=== PATIENT | male | born 1935 | race Two or more races ===

== ENCOUNTER 2023-03-16 10:01 | Outpatient (REF) | payer OTHER, SELFPAY ==
--- NOTE | ~2023-03-16 | US_ITS ---
EXAMINATION: Noninvasive assessment of the bilateral lower extremities with ARTERIAL DUPLEX and ANKLE BRACHIAL INDICES (ABIs). CLINICAL INFORMATION: Peripheral vascular disease, history of prior bilateral superficial femoral artery stents TECHNIQUE: Duplex Doppler techniques with waveform analysis and measurement of velocities in the bilateral common femoral, profunda femoris, superficial femoral, popliteal and tibial arteries were performed. Additionally, ankle pulse volume recordings, ankle pressure measurements and ankle brachial indices were obtained of the lower extremity arterial system bilaterally. The study was performed only at rest. COMPARISON: 02/18/2022 FINDINGS: DIRECT DUPLEX DOPPLER FINDINGS: RIGHT LEG: Common femoral artery: 120 cm/s, phasicity: Biphasic Profunda femoris artery: 104 cm/s, phasicity: Biphasic Superficial femoral artery (proximal): 77.0 cm/s, phasicity: Biphasic Superficial femoral artery (mid-distal): Stent is present. Patent color flow Doppler throughout the stent. Proximal segment:105 cm/s, phasicity: Biphasic Mid segment: 121 cm/s, phasicity: Biphasic Distal segment: 118 cm/s, phasicity: Biphasic Popliteal artery: 64.5 cm/s, phasicity: Biphasic Posterior tibial artery: 67.2 cm/s, phasicity: Biphasic Peroneal artery: 74.2 cm/s, phasicity: Biphasic LEFT LEG: Common femoral artery: 41.4 cm/s, phasicity: Biphasic Profunda femoris artery: 98.2 cm/s, phasicity: Biphasic Superficial femoral artery (proximal): 61.6 cm/s, phasicity: Biphasic Superficial femoral artery (mid): Stent is present. Patent color flow Doppler throughout the stent. Proximal segment:85.1 cm/s, phasicity: Biphasic Mid segment: 91.6 cm/s, phasicity: Biphasic Distal segment: 74.2 cm/s, phasicity: Monophasic Distal margin of the stent: 333 cm/s, phasicity: Monophasic Superficial femoral artery (distal): 100 cm/s, phasicity: Monophasic Popliteal artery: 39.9 cm/s, phasicity: Biphasic Posterior tibial artery: 20.3 cm/s, phasicity: Monophasic Peroneal artery: 55.0 cm/s, phasicity: Monophasic ANKLE-BRACHIAL INDEX: Right: 0.88? Left: 0.64 ANKLE PRESSURES: Right: PT 130, DP 109 Left: PT?94, DP?92 ANKLE PVR WAVEFORMS: Right: Abnormal Left: Abnormal US/US arterial duplex LE BI IMPRESSION: Right leg: Mildly dampened ankle-brachial index. Stent in the mid to distal superficial femoral artery is widely patent Left leg: Moderately dampened ankle-brachial index. A stent in the mid to superficial femoral artery is patent with elevated velocity at the distal margin of the stent consistent with severe stenosis. This is new compared to the prior exam KARINE Reference: - >1.4 = calcified vessels - 0.9 - 1.4 = normal - no significant arterial disease - 0.7 - 0.89 = mild peripheral arterial disease - 0.51 - 0.69 = moderate peripheral arterial disease - ? 0.50 = severe peripheral arterial disease - < .30 = critical arterial disease
== END 2023-03-16 10:02 | disposition home or self-care (01) ==
LOC: HO.US 10:01
PROVIDERS: PCP Internal Medicine; Visit Provider Surgery Vascular Surgery
DX: I70.213 Atherosclerosis of native arteries of extremities with intermittent claudication, bilateral legs (principal)
CPT/HCPCS: 93923; 93925

== ENCOUNTER → 2023-04-15 08:50 | Outpatient (REF) | payer OTHER, SELFPAY | LOC: HO.CARD 08:50 | PROVIDERS: PCP Internal Medicine; Visit Provider Internal Medicine Cardiovascular Disease | DX: Z95.2 Presence of prosthetic heart valve (principal) | CPT/HCPCS: 93306 ==

== ENCOUNTER 2023-05-03 12:55 | Outpatient (AMB) | payer OTHER, SELFPAY ==
--- NOTE | 2023-05-03 13:18 | A.OFFVIS_ITS ---
Intake Vital Signs 05/03/23 13:19 Height 5 ft 2 in Weight 145 lb 8.081 oz BMI 26.6 BP 130/70 Blood Pressure Location Lt brachial Position Sitting Pulse 65 Intake Visit Reasons: 6 mth f/up Intake Note: 6 month f/u Awning Hanger Required: No Accompanied by: Son Allergies diphenhydramine [From BENADRYL] Allergy (Severe, Verified 05/03/23 13:26) ANGIOEDEMA lisinopril [LISINOPRIL] Allergy (Severe, Verified 05/03/23 13:26) ANGIOEDEMA, facial swelling losartan [LOSARTAN] Allergy (Severe, Verified 05/03/23 13:26) ANGIOEDEMA, rash, angioedema clopidogrel [CLOPIDOGREL] Allergy (Unknown, Verified 05/03/23 13:26) UNKNOWN, bruises Iodinated Contrast Media [IV Contrast Dye] Allergy (Verified 05/03/23 13:26) Unknown Medication List - Last Reconciled 05/03/23 by Puneet Smith MD amlodipine 10 mg PO DAILY 90 days aspirin (Adult Low Dose Aspirin) 81 mg PO DAILY atorvastatin 80 mg PO BEDTIME 90 days cetirizine 10 mg PO DAILY cholecalciferol (vitamin D3) (Vitamin D3) 25 mcg PO DAILY diphenhydramine HCl (Banophen) 25 mg PO BEDTIME epinephrine 0.3 mg IM ONCE PRN ferrous sulfate 0 mg PO gabapentin 100 mg PO BID hydrochlorothiazide 25 mg PO DAILY isosorbide mononitrate ER 30 mg PO DAILY lorazepam 0.5 mg PO BID PRN metoprolol succinate ER 25 mg PO DAILY omeprazole 20 mg PO DAILY sertraline 25 mg PO DAILY HPI HPI Comments History of Present Illness Details Omar comes for follow-up. He is accompanied by son. He remains very active for his age. He said he walks in his basement for 35 minutes at a stretch and stationary bike for 20 minutes at a stretch in no symptoms. Denies any exertional chest pain or shortness of breath. Recent echocardiogram shows normal function bioprosthetic aortic valve with normal LV systolic function but with moderate LVH. He denies any lightheadedness, syncope. Denies any orthopnea, PND, leg edema. No exertional chest pain. [facility] Medical History Anxiety and depression CAD (coronary artery disease) GERD (gastroesophageal reflux disease) HTN (hypertension) Hx of hematuria Hyperlipidemia On anticoagulant therapy On beta haven at home PVD (peripheral vascular disease) Surgical History History of prostate surgery History of surgery on arm History of transurethral resection of bladder tumor (TURBT) Hx laparoscopic cholecystectomy Hx of CABG Hx of colonoscopy Hx of esophagogastroduodenoscopy Hx of eye surgery Status post aortic valve replacement Family History Father No problems noted. Mother CVD (cardiovascular disease) Social History Household Members Other:: Daughter Are you a primary manager home healthcare to a significant other at home: No Do you presently have visiting nurse or other home services: No Patient Tobacco Use Status: Never used Tobacco Review of Systems ENT Reports dizziness Card Denies chest pain, Denies chest pain at rest, Denies chest pain with activity, Denies rapid heart rate, Denies pedal edema, Denies edema, Denies leg edema, Denies lightheadedness, Denies palpitations, Denies dyspnea, Denies dyspnea on exertion and Denies orthopnea Resp Denies cough, Denies dyspnea and Denies dyspnea on exertion GI Denies hematochezia and Denies change in stool character Musc Denies abnormal gait, Reports limited range of motion, Reports muscle cramps, Denies muscle weakness, Denies numbness, Denies radiating pain into limb, Denies stiffness and Denies tingling Neuro Denies abnormal gait, Reports dizziness, Denies numbness and Denies tingling Endo Denies palpitations Physical Exam Vital Signs: Last Vital Signs Pulse 65 05/03/23 13:19 BP 130/70 05/03/23 13:19 BMI result Body Mass Index 26.6 Const General: cooperative, comfortable, no acute distress, alert and awake Nutritional Appearance: thin Orientation/consciousness: patient oriented x3 Limitations: no limitations HEENT Head: Yes normocephalic and Yes atraumatic Neck Neck: Yes trachea midline, Yes supple and Yes no JVD Carotids: no bruits Chest Chest palpation & inspection: normal inspection of the chest and other (Well- healed sternotomy scar) Resp Effort & Inspection: normal respiratory effort Auscultation: clear to auscultation bilaterally Cardio Jugular venous distension: no JVD Palpation: normal PMI Rate: regular rate Rhythm: regular rhythm Heart sounds: S1 normal heart sound present, S2 normal heart sound present and Murmur heart sound present (Early to mid peaking ejection systolic murmur best heard in the 2nd RICS) GI Auscultation: normal bowel sounds Skin General skin exam: no rashes or lesions noted and ecchymosis Neuro General: patient oriented x3 and no focal motor deficits Extrem General: Yes no clubbing, cyanosis or edema Psych Appearance: grossly normal Office Procedures EKG Details: EKG shows normal sinus rhythm with left axis deviation with LVH criteria. [id number], Complete Assessment & Plan Assessment & Plan (1) CAD (coronary artery disease): Comment: Foll'd by Dr. Smith Code(s): I25.10 - Atherosclerotic heart disease of [place] coronary artery without angina pectoris Plan: CAD status post coronary artery bypass grafting 10 years ago. He has had no recurrent anginal sounding chest discomfort. Has diffuse vascular disease with peripheral vascular disease status post stenting. Currently on low-dose aspirin therapy. Continue aggressive risk factor modification with goal LDL closer to 60 mg/dL. Advise at least annual lipid panel. Blood pressure is currently well optimized. Target goal blood pressure less than 130/84. Advised to monitor blood pressure at home and maintain a log. Low-salt diet was discussed advised to continue maintain physical activity as tolerated. Advised to call me with any new symptoms. (2) Status post aortic valve replacement: Comment: 23 mm bioprosthetic valve at the time of coronary artery bypass grafting Code(s): Z95.2 - Presence of prosthetic heart valve Plan: Status post bioprosthetic aortic valve replacement at the same time as coronary artery bypass grafting. SBE prophylaxis as per ACC/aha guidelines. Continue aggressive vascular risk factor modifications above. Follow up in the clinic in 1 year's time after an echocardiogram. Thank you for allowing me to partake in his care Coding Level of Care Code Est Pt Level 4 (39341) Diagnoses CAD (coronary artery disease) I25.10 Status post aortic valve replacement Z95.2 CPT Codes EKG - CPT: 45733-[id number], Complete ([id number])
[2023-05-03 13:19] VITALS: BP 130/70; PULSE 65; BMI 26.6
== END 2023-05-03 13:43 | disposition home or self-care (01) ==
PROVIDERS: Visit Provider Internal Medicine Cardiovascular Disease
DX: I25.10 Atherosclerotic heart disease of native coronary artery without angina pectoris (principal); Z95.2 Presence of prosthetic heart valve
CPT/HCPCS: 93010; 99214

== ENCOUNTER → 2023-05-03 12:55 | Outpatient (BNVA) | payer OTHER, SELFPAY | PROVIDERS: Visit Provider Internal Medicine Cardiovascular Disease | DX: I25.10 Atherosclerotic heart disease of native coronary artery without angina pectoris (principal); Z95.2 Presence of prosthetic heart valve | CPT/HCPCS: 93005; 99212 ==

== ENCOUNTER 2023-06-18 10:39 | Outpatient (REF) | payer OTHER, SELFPAY ==
--- NOTE | ~2023-06-18 | XR_ITS ---
EXAMINATION: XR CHEST CLINICAL INFORMATION: Cough. COMPARISON: Chest 05/31/2019 TECHNIQUE: 2 views of the chest were obtained. FINDINGS: The lungs are well-expanded and clear of acute pneumonic process. There is minimal atelectatic changes in both lung bases. Heart size and pulmonary vascularity is normal. No gross bony abnormality seen. There are median sternotomy sutures and mediastinal shantell from previous intervention. No gross bony abnormality seen. XR/XR chest 2V IMPRESSION: Minimal atelectatic changes both lung bases. Otherwise unremarkable.
== END 2023-06-18 10:40 | disposition home or self-care (01) ==
LOC: HO.HHCX 10:39
PROVIDERS: Visit Provider Registered Nurse
DX: R05.8 Other specified cough (principal)
CPT/HCPCS: 71046

== ENCOUNTER 2023-08-18 09:06 | Outpatient (REF) | payer OTHER, SELFPAY ==
[2023-08-18 11:46] LABS: Alanine Aminotransferase 34 U/L (0-40); Albumin Level 4.3 g/dL (3.5-5.0); Alkaline Phosphatase 110 U/L (39-117); Anion Gap 16 (12-20); Aspartate Amino Transferase 28 U/L (5-37); Bilirubin Direct 0.6 mg/dL (0.0-0.5); Bilirubin Total 2.9 mg/dL (0.0-1.0); Blood Urea Nitrogen 13 mg/dL (9-16); Calcium 9.9 mg/dL (8.4-10.2); Carbon Dioxide 28 mmol/L (22-29); Chloride 105 mmol/L (96-108); Estimated Glomerular Filt Rate > 60; Glucose Random 103 mg/dL (60-115); Potassium 3.9 mmol/L (3.3-5.1); Sodium 145 mmol/L (135-145); Total Protein 7.7 g/dL (6.5-8.0)
[2023-08-18 11:51] LABS: Cholesterol 145 mg/dL (<200); HDL Cholesterol 33 mg/dL (>40); LDL Cholesterol Calculated 69 mg/dL (<100); Triglycerides 216 mg/dL (<150)
[2023-08-18 12:01] LABS: Reflex LDLD? No
== END 2023-08-18 09:07 | disposition home or self-care (01) ==
LOC: HO.HHCL 09:06
PROVIDERS: Visit Provider Internal Medicine
DX: I10 Essential (primary) hypertension (principal); Z95.2 Presence of prosthetic heart valve
CPT/HCPCS: 36415; 80048; 80061; 80076

== ENCOUNTER → 2024-04-26 08:55 | Outpatient (REF) | payer OTHER, SELFPAY ==
--- NOTE | 2024-04-26 08:58 | CA_ITS ---
Transthoracic Echocardiogram Patient (Last, First, Middle): Omar Demarco, Gender: Male Date of : 1935 Age: 88 Procedure Date: 04/26/2024 Procedure Type: Transthoracic Echocardiogram Location: OP Height: 157.48 cm Weight: 65.77 kg BSA: 1.67 m2 Heart Rate: 58 bpm BP: 134 / 70 mmHg Press Operator Carbon Blocks: SANDEEP Referring MD: Puneet Smith MD Claims Vice President: Puneet Smith MD Symptoms: Z95.2 - Presence of prosthetic heart valve Study Quality: Adequate ECG Rhythm: Bradycardia Conclusions: - 1. Normal LV ejection fraction 65-70% with upper limits of normal wall thickness with impaired relaxation filling pattern 2. Bioprosthetic aortic valve seems to be functioning normally compared to last year with mean gradient of 15 mmHg 3. Mild mitral regurgitation 4. Normal RV systolic pressure with mildly elevated right atrial pressures 5. Upper limits of normal ascending aortic size 6. No gross pericardial effusion Findings Left Ventricle Normal left ventricular size, thickness, and systolic function. The visually estimated ejection fraction is between 65-70%. Spectral Doppler is indicative of an impaired relaxation filling pattern. E/E prime ratio is between 8 and 15 consistent with indeterminate filling pressures. Right Ventricle Normal right ventricular cavity size. There is mildly decreased right ventricular systolic function. Atria The left atrium is normal in size. There is no evidence of interatrial shunt. The right atrium is likely dilated. Aortic Valve A bioprosthetic aortic valve is present. The prosthetic aortic valve appears to be functioning abnormally. Echo findings are consistent with stenosis of the aortic valve prosthesis. The mean gradient is 15 mmHg. There is no aortic valve regurgitation. Mitral Valve There is mild anterior and posterior mitral leaflet thickening. There is mild mitral valve regurgitation. There is no mitral valve stenosis. Pulmonic Valve The pulmonic valve is likely normal. Tricuspid Valve Normal tricuspid valve structure. There is mild tricuspid valve regurgitation. The right ventricular systolic pressure is 33 mmHg. Mildly elevated right atrial pressure. There is no evidence of pulmonary hypertension. Great Vessels The pulmonary artery was not well visualized. There is no dilatation of the ascending aorta measuring 3.60 cm. Small plaque is seen in the sino tubular ridge. Venous The inferior vena cava is mildly dilated. Pericardium/Pleural There is no evidence of pericardial effusion. Prior Study Comparison Changes noted compared to prior study dated: 04/15/2023. LVH appears to be not that significant compared to last year. Measurements 2D Linear Measurements IVSd: 1.11 0.6-0.9/0.6-1.0 cm LVIDd: 4.19 3.9-5.3/4.2-5.9 cm LVIDd Index: 2.51 2.4-3.2/2.2-3.1 cm/m2 LVIDs: 2.61 2.0-3.6 cm LVPWd: 1.07 0.7-1.1 cm LA Diam: 4.50 2.7-3.8/3.0-4.0 cm LAIDs Index: 2.69 1.5-2.3 cm/m2 LV Mass: 192.31 67-162/88-224 g LV Mass Index: 115.16 43-95/49-115 g/m2 LVOT Diam: 2.00 3.0+(-)1.3 cm 2D Systolic Function EF 4C: 66.50 >55% EF 2C: 73.70 >55% EF BiP: 69.60 >55% Mitral Valve MV Pk E: 0.68 MV PK A: 0.72 MV Decel Time: 195.00 E/A: 1.00 E'Lateral: 6.42 E'Medial: 4.79 E/E' Med: 14.20 E/E' Lat: 10.60 PHT: 57.00 MVA PHT: 3.86 Decel Cascade: 3.49 Aortic Valve AoV Pk George: 2.79 AoV Mn George: 1.74 AoV VTI: 0.49 AoV Pk Grad: 31.00 Aov Mn Grad: 15.00 LAWRENCE Cont.VTI: 0.76 LVOT LVOT Pk George: 0.60 LVOT Mn George: 0.45 LVOT VTI: 0.13 LVOT Pk Grad: 1.00 LVOT Mn Grad: 1.00 LVOT Diam: 2.00 LVOT Area: 3.14 Diastolic Function MV Pk E: 0.68 MV Pk A: 0.72 E/A: 1.00 E'Medial: 4.79 E/E' Med: 14.20 E' Laterial: 6.42 E/E' Lat: 10.60 Right Ventricle TAPSE (mm): 15.20 TVS' George: 10.00 Tricuspid Valve TR Pk George: 2.48 TR Pk Grad: 25.00 RA Press: 8.00 RVSP: 33.00 Great Vessels Aorta Ao Asc: 3.60 2.1-3.4 cm Ao Arch: 3.10 Pulmonary Valve PV Pk George: 1.02 Peak PV Grad: 4.00 Updated in Other Vendor System with Status of Final Puneet Smith MD electronically signed on 04/26/2024 3:40:43 PM with status of Final
== END ==
LOC: HO.CARD 08:55
PROVIDERS: PCP Internal Medicine; Visit Provider Internal Medicine Cardiovascular Disease
DX: Z95.2 Presence of prosthetic heart valve (principal)
CPT/HCPCS: 93306

== ENCOUNTER → 2024-04-26 08:58 | Outpatient (BNV) | payer OTHER, SELFPAY | PROVIDERS: PCP Internal Medicine; Visit Provider Internal Medicine Cardiovascular Disease | DX: T82.857A Stenosis of other cardiac prosthetic devices, implants and grafts, initial encounter (principal); Z95.3 Presence of xenogenic heart valve; I34.0 Nonrheumatic mitral (valve) insufficiency; I36.1 Nonrheumatic tricuspid (valve) insufficiency | CPT/HCPCS: 93306 ==

== ENCOUNTER 2024-05-03 10:21 | Outpatient (AMB) | payer OTHER, SELFPAY ==
[2024-05-03 10:24] VITALS: BP 140/70; PULSE 64; BMI 26.2
--- NOTE | 2024-05-03 10:24 | MHC.OFFVIS ---
Vital Signs 05/03/24 10:24 Height 5 ft 2 in Weight 143 lb 4.807 oz BMI 26.2 BP 140/70 H Blood Pressure Location Lt brachial Position Sitting Pulse 64 Pulse Source Monitor Intake Visit Reasons: 1 year followup w/ekg after echo dx: cad Habitat Biologist Required: Yes Habitat Biologist Name: Son Allergies diphenhydramine [From BENADRYL] Allergy (Severe, Verified 05/03/23 13:26) ANGIOEDEMA lisinopril [LISINOPRIL] Allergy (Severe, Verified 05/03/23 13:26) ANGIOEDEMA, facial swelling losartan [LOSARTAN] Allergy (Severe, Verified 05/03/23 13:26) ANGIOEDEMA, rash, angioedema clopidogrel [CLOPIDOGREL] Allergy (Unknown, Verified 05/03/23 13:26) UNKNOWN, bruises Iodinated Contrast Media [IV Contrast Dye] Allergy (Verified 05/03/23 13:) Unknown Medication List - Last Reconciled 05/03/24 by Puneet Smith MD amlodipine 10 mg PO QAM aspirin (Adult Low Dose Aspirin) 81 mg PO DAILY atorvastatin 80 mg PO BEDTIME cetirizine 10 mg PO DAILY cholecalciferol (vitamin D3) (Vitamin D3) 25 mcg PO DAILY epinephrine 0.3 mg IM ONCE PRN gabapentin 100 mg PO BID hydrochlorothiazide 25 mg PO DAILY isosorbide mononitrate ER 30 mg PO QAM metoprolol succinate ER 25 mg PO DAILY omeprazole 20 mg PO DAILY sertraline 25 mg PO DAILY HPI Comments Details: Omar comes for follow-up, accompanied by his son who is visiting from [facility]. He is acting as concrete finishing machine operator. They declined a certified concrete finishing machine operator. Patient denies any cardiac symptoms. Recent echocardiogram shows well functioning aortic valve. However he complains of significant discomfort in his left lower extremity with walking. This limits his activity level. Otherwise he has no clear limitations. He is scheduled to see vascular surgery in near future. Denies any exertional angina. Denies any heart failure symptoms. Takes all his medications regularly. [facility] Medical History On anticoagulant therapy On beta haven at home GERD (gastroesophageal reflux disease) Hx of hematuria Anxiety and depression PVD (peripheral vascular disease) CAD (coronary artery disease) Hyperlipidemia HTN (hypertension) Surgical History Hx of esophagogastroduodenoscopy History of transurethral resection of bladder tumor (TURBT) History of prostate surgery Status post aortic valve replacement Hx of colonoscopy History of surgery on arm Hx laparoscopic cholecystectomy Hx of eye surgery Hx of CABG Family History Father No problems noted. Mother CVD (cardiovascular disease) Social History Household Members Other:: Daughter Are you a primary acute care assistant to a significant other at home: No Do you presently have visiting nurse or other home services: No Patient Tobacco Use Status: Never used Tobacco Review of Systems Const Denies weakness ENT Denies dizziness Card Denies chest pain, Denies chest pain with activity, Denies syncope, Denies rapid heart rate, Denies pedal edema, Denies edema, Denies leg edema, Denies lightheadedness, Denies palpitations, Denies dyspnea, Denies dyspnea on exertion and Denies orthopnea Resp Denies cough, Denies dyspnea and Denies dyspnea on exertion GI Denies hematochezia and Denies change in stool character Musc Denies abnormal gait, Denies muscle cramps, Denies muscle weakness, Denies numbness, Denies radiating pain into limb and Denies tingling Neuro Denies abnormal gait, Denies dizziness, Denies syncope, Denies numbness, Denies tingling and Denies weakness Endo Denies palpitations Physical Exam Vital Signs: Last Vital Signs Pulse 64 05/03/24 10:24 BP 140/70 H 05/03/24 10:24 BMI result Body Mass Index 26.2 Const General: cooperative, comfortable, no acute distress, alert and awake Nutritional Appearance: thin Orientation/consciousness: patient oriented x3 Limitations: no limitations HEENT Head: Yes normocephalic and Yes atraumatic Neck Neck: Yes trachea midline, Yes supple and Yes no JVD Carotids: no bruits Chest Chest palpation & inspection: normal inspection of the chest and other (Well-healed sternotomy scar) Resp Effort & Inspection: normal respiratory effort Auscultation: clear to auscultation bilaterally Cardio Jugular venous distension: no JVD Palpation: normal PMI Rate: regular rate Rhythm: abnormal rhythm with ectopic beats Heart sounds: S1 normal heart sound present, S2 normal heart sound present and Murmur heart sound present (Early to mid peaking ejection systolic murmur best heard in the 2nd RICS) GI Auscultation: normal bowel sounds Skin General skin exam: no rashes or lesions noted and ecchymosis Neuro General: patient oriented x3 and no focal motor deficits Extrem General: Yes no clubbing, cyanosis or edema Psych Appearance: grossly normal Office Procedures EKG Details: EKG shows normal sinus rhythm with first-degree AV block with frequent PVCs, unifocal with fixed and coupling with leftward axis [id number], Complete Assessment & Plan Assessment & Plan (1) Status post aortic valve replacement: Comment: 23 mm bioprosthetic valve at the time of coronary artery bypass grafting Code(s): Z95.2 - Presence of prosthetic heart valve Category: Surgical Plan: Status post aortic valve replacement which has been working well. He has been doing well from that perspective. No symptoms related to it. Continue monitor by annual echocardiogram. Continue low-dose aspirin therapy. Continue aggressive vascular risk factor modification, see below. SBE prophylaxis as per ACC/aha guidelines. (2) CAD (coronary artery disease): Comment: Foll'd by Dr. Smith Code(s): I25.10 - Atherosclerotic heart disease of [place] coronary artery without angina pectoris Category: Medical Plan: CAD with remote coronary artery bypass grafting without any current symptoms. His limiting symptoms are due to claudication for which he is going to see Dr. Aguilar in near future. Continue aggressive medical therapy. Continue low-dose aspirin therapy for life. Continue high-intensity statin therapy with target goal LDL less than 70 mg/dL. He is currently on triple antianginal therapy with isosorbide, metoprolol as well as amlodipine therapy and doing well with his physical activity and no cardiac limitations. Advised to monitor blood pressure at home maintain a log. Goal blood pressure less than 130/80. Encouraged to maintain activity level as tolerated. No restriction to his travel. Follow up in the clinic in 1 year's time, sooner p.r.n.. Thank you for allowing me to partake in his care Orders: Orders CA echo transthoracic complete 1 Year Z95.2 - Presence of prosthetic heart valve Coding Level of Care Code Est Pt Level 4 (57846) Diagnoses Status post aortic valve replacement Z95.2 CAD (coronary artery disease) I25.10 CPT Codes EKG - CPT: 74168-[id number], Complete ([id number])
== END 2024-05-03 11:22 | disposition home or self-care (01) ==
PROVIDERS: PCP Internal Medicine; Visit Provider Internal Medicine Cardiovascular Disease
DX: Z95.2 Presence of prosthetic heart valve (principal); I25.10 Atherosclerotic heart disease of native coronary artery without angina pectoris
CPT/HCPCS: 93010; 99214

== ENCOUNTER → 2024-05-03 10:21 | Outpatient (BNVA) | payer OTHER, SELFPAY | PROVIDERS: PCP Internal Medicine; Visit Provider Internal Medicine Cardiovascular Disease | DX: I25.10 Atherosclerotic heart disease of native coronary artery without angina pectoris (principal); Z95.2 Presence of prosthetic heart valve; I44.0 Atrioventricular block, first degree; R94.31 Abnormal electrocardiogram [ECG] [EKG] | CPT/HCPCS: 93005; 99212 ==

== ENCOUNTER 2024-05-16 10:55 | Outpatient (AMB) | payer OTHER, SELFPAY ==
--- NOTE | 2024-05-16 11:03 | A.OFFVIS_ITS ---
Intake Visit Reasons: Leg Pain , last seen 2021 Intake Note: Patient presents for leg pain. States it is only his left leg. He states his left thigh hurts, and that it travles down to her calf. He notices the pain is exacerbated by walking. He also states he gets pain at night in his calf as well. Allergies diphenhydramine [From BENADRYL] Allergy (Severe, Verified 05/16/24 11:05) ANGIOEDEMA lisinopril [LISINOPRIL] Allergy (Severe, Verified 05/16/24 11:05) ANGIOEDEMA, facial swelling losartan [LOSARTAN] Allergy (Severe, Verified 05/16/24 11:05) ANGIOEDEMA, rash, angioedema clopidogrel [CLOPIDOGREL] Allergy (Unknown, Verified 05/16/24 11:05) UNKNOWN, bruises Iodinated Contrast Media [IV Contrast Dye] Allergy (Verified 05/16/24 11:05) Unknown HPI HPI Leg Pain , last seen 2021: Details: Very pleasant 88-year-old gentleman presents for follow-up regarding peripheral vascular disease. Patient has undergone noninvasive testing. Reports that he is doing fairly well and able to ambulate with occasional arthritic pain in particular the left groin and thigh. He now presents for routine surveillance follow-up. [facility] Medical History On anticoagulant therapy On beta haven at home GERD (gastroesophageal reflux disease) Hx of hematuria Anxiety and depression PVD (peripheral vascular disease) CAD (coronary artery disease) Hyperlipidemia HTN (hypertension) Surgical History Hx of esophagogastroduodenoscopy History of transurethral resection of bladder tumor (TURBT) History of prostate surgery Status post aortic valve replacement Hx of colonoscopy History of surgery on arm Hx laparoscopic cholecystectomy Hx of eye surgery Hx of CABG Family History Father No problems noted. Mother CVD (cardiovascular disease) Social History Household Members Other:: Daughter Are you a primary foster care social worker to a significant other at home: No Do you presently have visiting nurse or other home services: No Patient Tobacco Use Status: Never used Tobacco Review of Systems Const All systems reviewed & are unremarkable except as noted in HPI and below Reports no additional complaints ENT Reports Normal hearing present Card Denies chest pain, Denies chest pain at rest, Denies chest pain with activity and Denies pedal edema Resp Denies cough GI Denies abdominal pain Musc Denies abnormal gait, Denies muscle cramps and Denies radiating pain into limb Skin/Breast Denies skin ulcer and Denies wounds Neuro Reports Normal hearing present and Denies abnormal gait Psych Reports no additional complaints Physical Exam Const General: cooperative, healthy appearing and comfortable Orientation/consciousness: oriented to person, oriented to place and oriented to time HEENT Head: Yes normal to inspection Neck Neck: Yes normal visual inspection Carotids: no bruits Chest Chest palpation & inspection: normal inspection of the chest Resp Effort & Inspection: normal respiratory effort and able to speak in complete sentences Auscultation: clear to auscultation bilaterally, no crackles, no rales, no rhonchi and no wheezes Cardio Rate: regular rate Rhythm: regular rhythm Heart sounds: S1 normal heart sound present and S2 normal heart sound present Bruits: no carotid bruits Peripheral pulses: Peripheral pulses 2+ throughout GI Inspection: Yes normal to inspection Skin Wounds: no wounds Hair: normal Neuro General: oriented to person, oriented to place and oriented to time Cranial nerves: Yes CN's II-XII intact bilaterally and Yes Normal hearing present Cognition (Neuro): normal cognition Motor exam (neuro): 5/5 motor strength present throughout Extrem Other: venous exam: No significant superficial varicosities or spider telangiectasias, minimal edema General: No clubbing, No cyanosis and No edema Psych Appearance: grossly normal Mental Status: mental status grossly normal Speech and movement: Normal speech and movement present Results Reviewed Results Reviewed: Noninvasive arterial testing dated 03/16/2020 Assessment & Plan Assessment & Plan (1) PAD (peripheral artery disease): Comment: 07/25/2019 angioplasty stent left SFA, angioplasty left peroneal artery 03/26/2021 angioplasty left SFA 04/09/2021 atherectomy and stent of right SFA Code(s): I73.9 - Peripheral vascular disease, unspecified Category: Medical Plan: In short his claudication appears to be stable. Unfortunately he never followed up with his 2022 testing. We will repeat his testing and have him follow-up within the next few weeks. Thank you for allowing us to assist in his care. If there are any questions or concerns please do not hesitate to contact us. Orders: Orders US arterial duplex LE BI 1 Week I73.9 - Peripheral vascular disease, unspecified Coding Level of Care Code Est Pt Level 4 (33040) Diagnoses PAD (peripheral artery disease) I73.9
== END 2024-05-16 11:22 | disposition home or self-care (01) ==
PROVIDERS: PCP Internal Medicine; Visit Provider Surgery Vascular Surgery
DX: I73.9 Peripheral vascular disease, unspecified (principal)
CPT/HCPCS: 99214

== ENCOUNTER → 2024-05-16 10:55 | Outpatient (BNVA) | payer OTHER, SELFPAY | PROVIDERS: PCP Internal Medicine; Visit Provider Surgery Vascular Surgery | DX: I73.9 Peripheral vascular disease, unspecified (principal) | CPT/HCPCS: 99212 ==

== ENCOUNTER 2024-06-05 09:29 | Outpatient (REF) | payer OTHER, SELFPAY ==
[2024-06-05 12:40] LABS: Alanine Aminotransferase 26 U/L (0-40); Albumin Level 4.2 g/dL (3.5-5.0); Alkaline Phosphatase 121 U/L (39-117); Anion Gap 13 (12-20); Aspartate Amino Transferase 24 U/L (5-37); Bilirubin Total 2.2 mg/dL (0.0-1.0); Blood Urea Nitrogen 12 mg/dL (9-16); Calcium 9.5 mg/dL (8.4-10.2); Carbon Dioxide 26 mmol/L (22-29); Chloride 107 mmol/L (96-108); Cholesterol 123 mg/dL (<200); Estimated Glomerular Filt Rate > 60; Glucose Random 123 mg/dL (60-115); HDL Cholesterol 34 mg/dL (>40); LDL Cholesterol Calculated 57 mg/dL (<100); Potassium 4.1 mmol/L (3.3-5.1); Sodium 142 mmol/L (135-145); Total Protein 7.4 g/dL (6.5-8.0); Triglycerides 163 mg/dL (<150)
== END 2024-06-05 09:30 | disposition home or self-care (01) ==
LOC: HO.HHCL 09:29
PROVIDERS: Visit Provider Internal Medicine
DX: I25.10 Atherosclerotic heart disease of native coronary artery without angina pectoris (principal)
CPT/HCPCS: 36415; 80053; 80061

== ENCOUNTER 2024-06-08 10:29 | Outpatient (REF) | payer OTHER, SELFPAY ==
--- NOTE | ~2024-06-08 | US_ITS ---
EXAMINATION: NONINVASIVE ASSESSMENT OF THE ARTERIES OF BOTH LOWER EXTREMITIES INCLUDING PVR EXAM AND BILATERAL LOWER EXTREMITY DUPLEX CLINICAL INFORMATION: peripheral vascular disease COMPARISON: Lower extremity arterial duplex and ABIs March 16, 2023 TECHNIQUE: Ankle pulse volume recordings, ankle pressure measurements and ankle brachial indices were obtained of the lower extremity arterial system bilaterally in addition to duplex Doppler techniques with wave form analysis and measurement of velocities in the common femoral, profunda femoral, superficial femoral, popliteal, tibial and peroneal arteries. The study was performed only at rest. FINDINGS: RIGHT LEG 1. Right Ankle-Brachial Index: 1.14 (higher of the DP/PT) >0.97-1.25 = normal - no significant arterial disease 0.75-0.96 = mild peripheral arterial disease 0.5-0.74 = moderate peripheral arterial disease <0.50 = severe peripheral arterial disease <0.30 = critical arterial disease 2. Segmental Pressures (mmHg): Brachial: 112 Ankle: PT 160, DP 137 3. PVR Waveforms: Ankle: Normal 4. Direct Duplex: Common femoral artery: 123.6 cm/s, triphasic Profunda femoris artery: 127.3 cm/s, biphasic Superficial femoral artery (proximal): 96 cm/s, biphasic Superficial femoral artery (mid): Patent stent in place Superficial femoral artery (distal): 145.7 cm/s, biphasic Proximal Popliteal artery: 95 cm/s, biphasic Mid posterior tibial artery: 21 cm/s, biphasic Anterior tibial artery: 13.1 cm/s, biphasic Peroneal artery: 90 cm/s, biphasic DPA: 14.8 cm/s, biphasic LEFT LE. Left Ankle-Brachial Index: 0.6 (higher of the DP/PT) >0.97-1.25 = normal - no significant arterial disease 0.75-0.96 = mild peripheral arterial disease 0.5-0.74 = moderate peripheral arterial disease <0.50 = severe peripheral arterial disease <0.30 = critical arterial disease 2. Segmental Pressures: Brachial: 140 Ankle: PT inaudible, DP 84 3. PVR Waveforms: Ankle: Monophasic 4. Direct Duplex: Common femoral artery: 47 cm/s, biphasic Profunda femoris artery: 118.3 cm/s, biphasic Superficial femoral artery (proximal): 35.5 cm/s, monophasic Superficial femoral artery (mid): Occluded stent Superficial femoral artery (distal): 16.3 cm/s, monophasic Proximal Popliteal artery: 27.9 cm/s, monophasic Mid posterior tibial artery: 8.6 cm/s, monophasic Anterior tibial artery: 7.9 cm/s, biphasic Peroneal artery: 23.3 cm/s, biphasic DPA: 8.3 cm/s, biphasic US/US arterial duplex LE BI IMPRESSION: 1. Right KARINE 1.14, previously 0.88. 2. Left KARINE 0.6, previously 0.64. 3. Occluded left mid superficial femoral artery stent. 4. Patent right mid superficial femoral artery stent. 5. Elevated velocities in the distal right SFA suggesting mild stenosis. Electronically signed by: Santy Laurent MD 06/08/2024 02:45 PM EDT
== END 2024-06-08 10:30 | disposition home or self-care (01) ==
LOC: HO.US 10:29
PROVIDERS: PCP Internal Medicine; Visit Provider Surgery Vascular Surgery
DX: I73.9 Peripheral vascular disease, unspecified (principal)
CPT/HCPCS: 93925

== ENCOUNTER 2024-07-18 10:01 | Outpatient (AMB) | payer OTHER, SELFPAY ==
--- NOTE | 2024-07-18 10:04 | A.OFFVIS_ITS ---
Intake Visit Reasons: follow up s/p Art US 06/08/24 Intake Note: Patient presents for follow up arterial US performed on 06/08/24. States he has left leg pain near his knee and thigh. Allergies diphenhydramine [From BENADRYL] Allergy (Severe, Verified 07/18/24 10:06) ANGIOEDEMA lisinopril [LISINOPRIL] Allergy (Severe, Verified 07/18/24 10:06) ANGIOEDEMA, facial swelling losartan [LOSARTAN] Allergy (Severe, Verified 07/18/24 10:06) ANGIOEDEMA, rash, angioedema clopidogrel [CLOPIDOGREL] Allergy (Unknown, Verified 07/18/24 10:06) UNKNOWN, bruises Iodinated Contrast Media [IV Contrast Dye] Allergy (Verified 07/18/24 10:06) Unknown HPI HPI follow up s/p Art US 06/08/24: Details: Very pleasant 88-year-old gentleman presents for follow-up regarding lower extremity arterial surveillance. He reports he can walk about a block be prior to any difficulty. He does note some left calf tightness but overall is doing relatively well. Also complains of lateral hip pain as well. Now presents for routine follow-up with noninvasive arterial testing. Of note he remains quite active. Is actually flying out tomorrow to to lose [place] for his granddaughter's wedding. Does have the overall goal to reach 89 years old. [facility] Medical History On anticoagulant therapy On beta haven at home GERD (gastroesophageal reflux disease) Hx of hematuria Anxiety and depression PVD (peripheral vascular disease) CAD (coronary artery disease) Hyperlipidemia HTN (hypertension) Surgical History Hx of esophagogastroduodenoscopy History of transurethral resection of bladder tumor (TURBT) History of prostate surgery Status post aortic valve replacement Hx of colonoscopy History of surgery on arm Hx laparoscopic cholecystectomy Hx of eye surgery Hx of CABG Family History Father No problems noted. Mother CVD (cardiovascular disease) Social History Household Members Other:: Daughter Are you a primary child day care provider to a significant other at home: No Do you presently have visiting nurse or other home services: No Patient Tobacco Use Status: Never used Tobacco Review of Systems Const All systems reviewed & are unremarkable except as noted in HPI and below Reports no additional complaints ENT Reports Normal hearing present Card Denies chest pain, Denies chest pain at rest, Denies chest pain with activity and Denies pedal edema Resp Denies cough GI Denies abdominal pain Musc Denies abnormal gait, Denies muscle cramps and Denies radiating pain into limb Skin/Breast Denies skin ulcer and Denies wounds Neuro Reports Normal hearing present and Denies abnormal gait Psych Reports no additional complaints Physical Exam Const General: cooperative, healthy appearing and comfortable Orientation/consciousness: oriented to person, oriented to place and oriented to time HEENT Head: Yes normal to inspection Neck Neck: Yes normal visual inspection Carotids: no bruits Chest Chest palpation & inspection: normal inspection of the chest Resp Effort & Inspection: normal respiratory effort and able to speak in complete sentences Auscultation: clear to auscultation bilaterally, no crackles, no rales, no rhonchi and no wheezes Cardio Other: Bilateral DP signals Rate: regular rate Rhythm: regular rhythm Heart sounds: S1 normal heart sound present and S2 normal heart sound present Bruits: no carotid bruits GI Inspection: Yes normal to inspection Skin Wounds: no wounds Hair: normal Neuro General: oriented to person, oriented to place and oriented to time Cranial nerves: Yes CN's II-XII intact bilaterally and Yes Normal hearing present Cognition (Neuro): normal cognition Motor exam (neuro): 5/5 motor strength present throughout Extrem Other: venous exam: No significant superficial varicosities or spider tel angiectasias, minimal edema General: No clubbing, No cyanosis and No edema Psych Appearance: grossly normal Mental Status: mental status grossly normal Speech and movement: Normal speech and movement present Results Reviewed Results Reviewed: Noninvasive arterial testing dated 06/08/2024 demonstrates KARINE on the right of 1.14 and on the left of 0.6. These are similar to findings of proximally a year ago. Written report and images were reviewed Assessment & Plan Assessment & Plan (1) PAD (peripheral artery disease): Comment: 07/25/2019 angioplasty stent left SFA, angioplasty left peroneal artery 03/26/2021 angioplasty left SFA 04/09/2021 atherectomy and stent of right SFA Code(s): I73.9 - Peripheral vascular disease, unspecified Category: Medical Plan: In short patient is doing extremely well will in terms of his lower extremity peripheral vascular disease. He is a 1 block claudication but I do think that is enough for him to carry out his daily activities. Should it become more may have to re-evaluate intervention on this left lower extremity. He will follow up with us in approximately 1 year's time. I do think at his current state he will reach his overall goal of being 89 years old. Thank you for allowing us to assist in his care. If there are any questions or concerns please do not hesitate to contact us. Please note a longitudinal relationship has been created with the patient and we have been following and surveillance this chronic condition. Orders: Orders US arterial duplex LE BI 1 Year I73.9 - Peripheral vascular disease, unspecified Coding Level of Care Code Est Pt Level 4 (81440) Complex EM visit Add On [id number] Diagnoses PAD (peripheral artery disease) I73.9
== END 2024-07-18 10:19 | disposition home or self-care (01) ==
PROVIDERS: PCP Internal Medicine; Visit Provider Surgery Vascular Surgery
DX: I73.9 Peripheral vascular disease, unspecified (principal)
CPT/HCPCS: 99214; G2211

== ENCOUNTER → 2024-07-18 10:01 | Outpatient (BNVA) | payer OTHER, SELFPAY | PROVIDERS: PCP Internal Medicine; Visit Provider Surgery Vascular Surgery | DX: I73.9 Peripheral vascular disease, unspecified (principal) | CPT/HCPCS: 99212 ==

== ENCOUNTER 2024-10-13 08:55 | Outpatient (REF) | payer OTHER, SELFPAY ==
[2024-10-13 11:50] LABS: Anion Gap 11 (12-20); Blood Urea Nitrogen 17 mg/dL (9-16); Calcium 9.6 mg/dL (8.4-10.2); Carbon Dioxide 29 mmol/L (22-29); Chloride 106 mmol/L (96-108); Estimated Glomerular Filt Rate > 60; Glucose Random 109 mg/dL (60-115); Potassium 4.1 mmol/L (3.3-5.1); Sodium 142 mmol/L (135-145)
[2024-10-13 11:55] LABS: Estimated Average Glucose 123 mg/dL; Hemoglobin A1c % 5.9 % (<6.0); Total Hemoglobin (HGBA1C) 4257.2437 umol/L
== END 2024-10-13 08:56 | disposition home or self-care (01) ==
LOC: HO.HHCL 08:55
PROVIDERS: Visit Provider Internal Medicine
DX: R73.9 Hyperglycemia, unspecified (principal)
CPT/HCPCS: 36415; 80048; 83036